=== PATIENT | male | born 1965 | race Caucasian/White ===

== ENCOUNTER → 2024-01-23 15:16 | Outpatient (REF) | payer OTHER, SELFPAY | LOC: RAD 15:16 | PROVIDERS: ATTENDING PHYSICIAN Internal Medicine Critical Care Medicine; FAMILY PHYSICIAN Internal Medicine; REFERRING PHYSICIAN Internal Medicine Cardiovascular Disease | DX: R91.1 Solitary pulmonary nodule (principal); J43.2 Centrilobular emphysema; R06.02 Shortness of breath; I50.22 Chronic systolic (congestive) heart failure | CPT/HCPCS: 71250; 93306 ==

== ENCOUNTER → 2024-06-30 10:42 | Outpatient (REF) | payer OTHER, SELFPAY | LOC: RAD 10:42 | PROVIDERS: ATTENDING PHYSICIAN Internal Medicine; REFERRING PHYSICIAN Internal Medicine Cardiovascular Disease | DX: M25.551 Pain in right hip (principal) | CPT/HCPCS: 73502 ==

== ENCOUNTER 2024-09-10 13:19 | Emergency (ER) | payer OTHER, SELFPAY ==
[2024-09-10 13:25] VITALS: BP 145/69
[2024-09-10 14:01] LABS: % Eosinophils 5.2 % (0-6); % Immature Granulocytes 0.1 % (0-0.5); % Lymphocytes 30.9 % (20.5-51.1); % Monocytes 7.8 % (1.7-9.3); Absolute Basophils 0.1 10^3/uL (0-0.2); Absolute Eosinophils 0.4 10^3/uL (0-0.7); Absolute Lymphocytes 2.3 10^3/uL (1.2-3.4); Absolute Monocytes 0.6 10^3/uL (0.1-0.6); Hematocrit 40.6 % (39.0-52.0); Hemoglobin 13.7 g/dL (13.0-18.0); Mean Corp Hgb Conc. 33.7 g/dL (33.0-37.0); Mean Corpuscular Hgb 29.5 pg (27.0-31.0); Mean Corpuscular Volume 87.3 fL (80.0-94.0); Mean Platelet Volume 9.7 fL (7.4-10.4); Nucleated Red Blood Cells % 0 % (-); Platelet Count 215 10^3/uL (130-400); Red Blood Cell Count 4.65 10^6/uL (4.70-6.10); Red Cell Dist. Width 14.6 % (11.5-14.5); White Blood Cell Count 7.3 10^3/uL (4.8-10.8)
[2024-09-10 14:16] LABS: COVID-19 Antigen Negative (Negative)
[2024-09-10 14:29] LABS: NT-proBNP 905 pg/ml; Troponin I < 0.012 ng/ml
[2024-09-10 14:38] LABS: ALT (SGPT) 30 U/L (0-50); AST (SGOT) 51 U/L (17-59); Albumin 4.7 g/dl (3.5-5.0); Alkaline Phosphatase 118 U/L (38-126); Blood Urea Nitrogen 26 mg/dl (9-20); Calcium 9.2 mg/dl (8.4-10.2); Carbon Dioxide 25 mmol/L (22-30); Chloride 98 mmol/L (98-107); Glucose 101 mg/dl (70-99); Potassium 3.8 mmol/L (3.5-5.1); Sodium 136 mmol/L (135-145); Total Bilirubin 1.5 mg/dl (0.2-1.3); eGFR > 60.00
--- NOTE | 2024-09-10 15:04 | ED.GENMED ---
History of Present Illness
<Eligio Flynn PA-C - Last Filed: 09/10/24 18:19>
General
Chief Complaint: Breathing Problem
Source: patient
Exam Limitations: none
Time Seen by Provider: 09/10/24 14:52
History of Present Illness
History of Present Illness:
59-year-old male with history of COPD CHF follows with cardiology here has history CHF with ejection fraction of 30% on last echocardiogram done in December of last year. Presents with persistent cough and occasional shortness of breath since 3 to 4
days ago. No associated chest pain. No recent travel. On a baby aspirin. He denies any weight gain or leg swelling. He noted more of a bronchospasm sensation last evening. He denies any hemoptysis. No vomiting. No fever. They spoke with
cardiology office today and he told him to come here for further evaluation. No other complaints at this time
Phy Exam
<Eligio Flynn PA-C - Last Filed: 09/10/24 18:19>
Physical Exam
Physical Exam:
General: Well appearing male coughing throughout exam
HEENT: NC/AT
heart: RRR, no mumurs
lungs: Coarse bilaterally with a cough.
Extremities: No cyanosis or edema
Skin: Warm no rash
Scores
<Eligio Flynn PA-C - Last Filed: 09/10/24 18:19>
Heart Failure Risk
Heart Failure Risk Score: Not Applicable
Course
<Eligio Flynn PA-C - Last Filed: 09/10/24 18:19>
Orders/Labs/Results
Orders:
Orders
09/10/24 13:26
ECG [Electrocardiogram (*1)] Urgent
Reason for Study: Shortness of Breath
EKG- Treatment ONCE
09/10/24 13:49
COVID-19 Antigen Urgent
Source: Nasal Swab
Complete Blood Count/With Diff Urgent
Comprehensive Metabolic Panel Urgent
NT-proBNP Urgent
Troponin I Urgent
Influenza A+B Rapid Molecular Urgent
DEEP Source: Nasal Swab
Specimen Description:
09/10/24 15:00
Ipratropium/Albuterol Sulfate [Duoneb] 3 ml INH R NOW ONE
CR Chest - 2 Views Urgent
Comment:
Reason For Exam: cough
09/10/24 18:04
Azithromycin [Zithromax] 500 mg PO NOW STA
Prednisone [Deltasone] 50 mg PO NOW STA
Abnormal Lab Results
09/10/24
13:49
RBC 4.65 L 10^6/uL
(4.70-6.10)
RDW 14.6 H %
(11.5-14.5)
BUN 26 H mg/dl
(9-20)
Glucose 101 H mg/dl
(70-99)
Total Bilirubin 1.5 H mg/dl
(0.2-1.3)
09/10/24 13:49
09/10/24 13:49
Vital Signs
Initial and Last Documented VS:
Initial Vital Signs
Temp Pulse Resp BP Pulse Ox
97.7 F 68 16 145/69 98
09/10/24 13:25 09/10/24 13:25 09/10/24 13:25 09/10/24 13:25 09/10/24 13:25
Last Documented Vital Signs
Temp Pulse Resp BP Pulse Ox
97.7 F 91 16 161/79 98
09/10/24 13:25 09/10/24 17:28 09/10/24 13:25 09/10/24 16:00 09/10/24 17:00
<Tahir Vela, DO - Last Filed: 09/10/24 18:01>
Orders/Labs/Results
Orders:
Orders
09/10/24 13:26
ECG [Electrocardiogram (*1)] Urgent
Reason for Study: Shortness of Breath
EKG- Treatment ONCE
09/10/24 13:49
COVID-19 Antigen Urgent
Source: Nasal Swab
Complete Blood Count/With Diff Urgent
Comprehensive Metabolic Panel Urgent
NT-proBNP Urgent
Troponin I Urgent
Influenza A+B Rapid Molecular Urgent
DEEP Source: Nasal Swab
Specimen Description:
09/10/24 15:00
Ipratropium/Albuterol Sulfate [Duoneb] 3 ml INH R NOW ONE
CR Chest - 2 Views Urgent
Comment:
Reason For Exam: cough
09/10/24 18:04
Azithromycin [Zithromax] 500 mg PO NOW STA
Prednisone [Deltasone] 50 mg PO NOW STA
Abnormal Lab Results
09/10/24
13:49
RBC 4.65 L 10^6/uL
(4.70-6.10)
RDW 14.6 H %
(11.5-14.5)
BUN 26 H mg/dl
(9-20)
Glucose 101 H mg/dl
(70-99)
Total Bilirubin 1.5 H mg/dl
(0.2-1.3)
09/10/24 13:49
09/10/24 13:49
Vital Signs
Initial and Last Documented VS:
Initial Vital Signs
Temp Pulse Resp BP Pulse Ox
97.7 F 68 16 145/69 98
09/10/24 13:25 09/10/24 13:25 09/10/24 13:25 09/10/24 13:25 09/10/24 13:25
Last Documented Vital Signs
Temp Pulse Resp BP Pulse Ox
97.7 F 91 16 161/79 98
09/10/24 13:25 09/10/24 17:28 09/10/24 13:25 09/10/24 16:00 09/10/24 17:00
<Eligio Flynn PA-C - Last Filed: 09/10/24 18:19>
MDM/Problems Addressed
Differential Diagnosis Includes:
Cough shortness of breath. Consider viral illness for COPD flare versus CHF flare versus pneumonia
Does not appear volume overloaded on exam and BNP is within normal limits. Chest x-ray is pending. COVID and flu test were negative.
<Eligio Flynn PA-C - Last Filed: 09/10/24 18:19>
*Critical Care Note
Total Time (30-74mins, 75-104mins- exclusive of procedures): Not Applicable
<Eligio Flynn PA-C - Last Filed: 09/10/24 18:19>
Update Note
Update Note:
Patient reevaluated still coughing but not hypoxic. He ambulated well without any hypoxia. Chest x-ray was read as negative. Suspect COPD flare. Discussed with emergency room attending as well as pulmonology. No indication for admission. Will
start prednisone Zithromax and Tessalon. 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
ED Attending Note
<Eligio Flynn PA-C - Last Filed: 09/10/24 18:19>
-
Portions of this chart may have been created with voice recognition software.� Occasional wrong word or��sound alike� substitutions may have occurred due to the inherent limitations of voice recognition software.
<Tahir Vela DO - Last Filed: 09/10/24 18:01>
ED Attending Note
Patient seen and examined by attending physician: Yes
I performed the substantive portion of visit, reviewed & personally made and approve the management plan that is documented in note by myself or SADIE.: Yes
ED Attending Note:
I evaluated the patient at bedside. Patient's main symptom is prominent recurring coughing to the point that this leads to shortness of breath. Suspect more of a COPD exacerbation/viral syndrome. Chest x-ray clear but will give a short course of
azithromycin as well as steroids. Less of a suspicion for heart failure.
Discharge Plan
Departure
Patient Disposition: Home (Routine Discharge)
Date of Disposition: 09/10/24
Time of Disposition: 18:16
Patient with high blood pressure during this ER visit?: No
Discharge Problem:
Acute exacerbation of chronic obstructive pulmonary disease
Instructions: Exacerbation of COPD (DC)
Prescriptions:
New
prednisone 20 mg tablet
40 mg PO DAILY 5 Days Qty: 10 0RF
azithromycin [Zithromax] 250 mg tablet
250 mg PO DAILY Qty: 4 0RF
benzonatate 200 mg capsule
200 mg PO TID PRN (Reason: Cough) Qty: 14 0RF
No Action
carvedilol [Coreg] 25 MG tablet
25 mg PO BID
atorvastatin 40 MG tablet
80 mg PO DAILY
isosorbide mononitrate 30 MG tablet extended release 24 hr
30 mg PO DAILY
hydralazine 25 MG tablet
50 mg PO DAILY
pantoprazole 40 MG tablet,delayed release (DR/EC)
40 mg PO DAILY
meloxicam 15 mg Tablet
15 mg PO DAILY
spironolactone 25 mg Tablet
25 mg PO DAILY
hydralazine 25 mg Tablet
25 mg PO QPM
aspirin [aspirin] 81 mg tablet,delayed release (DR/EC)
81 mg PO DAILY Qty: 1 0RF
furosemide 40 MG tablet
60 mg PO BID Qty: 0 0RF
Rx Instructions:
Please note dose increase
Referrals:
Bjorn Ray MD [Family Provider] -
Interventions
Interventions:
*Risk Screen - Suicide Last Done: 09/10/24 15:15
*General Assessment Last Done: 09/10/24 15:15
ED- Fall Risk Assessment Last Done: 09/10/24 17:29
ED- Cardiac Assessment Last Done: 09/10/24 17:29
ED- Pulmonary Assessment Last Done: 09/10/24 17:29
Discharge Date and Time
Print Language: ITALIAN
[2024-09-10] MEDS: DUONEB 3 ML INH (15:14)
[2024-09-10 15:15] VITALS: BMI 26.2
[2024-09-10 16:00] VITALS: BP 161/79
[2024-09-10] MEDS: DELTASONE 50 MG PO (18:11)
[2024-09-10] MEDS: ZITHROMAX 500 MG PO (18:11)
== END 2024-09-10 18:38 | disposition home or self-care (01) ==
LOC: EMR 13:19
PROVIDERS: Emergency Medicine; EMERGENCY PHYSICIAN Emergency Medicine; FAMILY PHYSICIAN Internal Medicine
DX: J44.1 Chronic obstructive pulmonary disease with (acute) exacerbation (principal); I50.9 Heart failure, unspecified
CPT/HCPCS: 99285; 94640; 71046; 80053; 83880; 84484; 85025; 87502; 87811; 93005

== ENCOUNTER → 2024-11-20 14:50 | Outpatient (REF) | payer OTHER, SELFPAY | LOC: RCS 14:50 | PROVIDERS: ATTENDING PHYSICIAN Internal Medicine Cardiovascular Disease; FAMILY PHYSICIAN Internal Medicine | DX: I50.20 Unspecified systolic (congestive) heart failure (principal) | CPT/HCPCS: 93306 ==

== ENCOUNTER → 2025-03-01 14:00 | Outpatient (REF) | payer OTHER, SELFPAY | LOC: HWRAD 14:00 | PROVIDERS: ATTENDING PHYSICIAN Internal Medicine Critical Care Medicine; FAMILY PHYSICIAN Internal Medicine; REFERRING PHYSICIAN Internal Medicine Cardiovascular Disease | DX: R91.1 Solitary pulmonary nodule (principal) | CPT/HCPCS: 71250 ==

== ENCOUNTER 2025-05-03 11:29 | Day surgery (SDC) | payer OTHER, SELFPAY ==
[2025-05-03] VITALS (7 sets, daily range): BP systolic 130–163; BP diastolic 63–89; BMI 26.8; BMI 28.4
[2025-05-03 12:02] LABS: Glucose - Point of Care 95 mg/dl (70-99)
--- NOTE | 2025-05-03 13:13 | W.ICD.CONTRA ---
Post ICD/SUPERINTENDENT DIVISION-D
-
History of VA?: No
LV Function
Left ventricular function study result?: Ejection Fraction >/= 40%
ACEI/ARB/ARNI
Patient already on ACEI/ARB/ARNI: No
ACEI/ARB/ARNI Not Indicated: Left Ventricular EF >/= 40%
Beta-Niru
Patient already on Beta Niru: Yes
--- NOTE | 2025-05-03 13:23 | ITS.CL.ICD ---
Frame Stripper And Crusher - ICD
Implantable Cardioverter Defibrillator
Procedure Report:
Dual Chamber Implantable Cardioverter� Defibrillator Generator Change:
Mr. Howard is a very pleasant 60 years old gentleman with chronic systolic heart failure and s/p ACTUARIAL CONSULTANT-D that has responded to ACTUARIAL CONSULTANT and EF has improved to 45% with end of battery life is here for generator change.
Indications: Severe systolic dysfunction
Date of the Procedure: 05/03/2025
Pre-Operative Diagnosis: Heart failure with reduced ejection fraction and end of battery life.
Post-Operative Diagnosis: Heart failure with reduced ejection fraction
Procedure Performed: BIVENTRICULAR IMPLANTABLE CARDIOVERRTER DEFIBRILLATOR GENERATOR CHANGE
Performing Physician:
Smooth Soares MD
Anesthesia:
See anesthesia records
Detailed Description of the Procedure:
The patient was identified using hospital identification and informed consent obtained for the procedure. The risks were explained including, but not limited to: Bleeding, infection, arrhythmia, stroke, vascular/cardiac/lung puncture, surgery,
pacemaker dependency/device malfunction. All questions were answered.
The patient was brought to the electrophysiology laboratory in stable condition in fasting state. Continuous electrocardiographic and hemodynamic monitoring was initiated.
The initial rhythm sinus with BiV pacing.
The procedure site was meticulously prepared with surgical scrub and allowed to dry with no pooling. Sterile draping was applied to cover the procedure site. The image intensifier was draped with sterile bag and positioned over the patient.
The left infraclavicular region was prepped and draped in the usual sterile fashion. Local anesthesia was administered subcutaneously using 1% lidocaine / bupivacaine. The incision was made on the previous scar. The old ICD generator was accessed
and the adhesions were removed with care to avoid damage to the leads. The ICD capsule was cut to access the generator. The old device was attached to the underlying fascia and adhesions were cut to free the device. It was removed from the body. The
Weitlaner retractor was placed in the incision and used as access to skin for unipolar pacing as needed.
The leads were gradually removed and placed in the respective locations in the newer generator without any significant pause noted.
The old pocket and capsule was modified and the excessive scar was removed. The new device was placed in the modified pocket.
A TYRX absorbable antibacterial envelope was used and was placed around the device and leads.
There was excellent sensing, pacing, and impedance from the leads.�Bovie cautery, and antibiotics were used.
The wound was irrigated thoroughly with antibiotic solution and closed in 3 layers using 2-0, V loc sutures and 4-0 Monocryl sutures. Steri-Strips and a bandage were applied externally.�
Procedure End:
The procedure was tolerated well. A bandage was applied to the incision area.
Estimated Blood loss:
5 cc
Fluoro time:
0 min
Specimens Removed:
No cultures and no specimens were obtained. No intraoperative pathology was identified.
Urine output:
None
Packs / Drains/ Tubes:
None
Instrument / Sponge Count Correct:
Yes
Complications of the Procedure:
None
Condition of Patient at Time of Transfer:
Hemodynamically stable with no neurological or vascular compromise.
Device information:�
Generator: Rewardpod; Model# [id number]; Serial# [id number]. (implanted: 05/03/2025)
Atrial Lead: [employer]att; Model# [id number]; Serial# [id number]. (implanted: 05/07/2010)
Measured data in the right atrium was sensing of 3.0 mV, impedance of 380 ohms and threshold of 0.5 V at 0.4ms�
RV Lead: Gurvinder Sci; Model# [id number]; Serial# [id number]. (implanted: 05/07/2010)
Measured data in the RV lead was sensing of 10.9 mV, impedance of 746ohms and threshold of 0.5 V at 0.4ms�
LV Lead: SJM; Model# [id number]; Serial# [id number]. (implanted: 05/07/2010)
Measured data in the LV lead was impedance of 399ohms and threshold of 0.5 V at 0.4ms�
PROGRAMMING PARAMETERS:�
Ambrocio parameter settings were DDD 50-130 bpm. �
����������� Mode switch: On
�����������
����������� Rate Adaptive A-V Interval: On
Output� parameters:
����������������������� Amplitude (V)������������� Pulse Width (ms)������� Sensitivity (mV)
����������� RA: ����� 1.0 ����������������������������� 0.4������������������������������ 0.3
����������� RV:������ 1.0������������������������������ 0.4������������������������������ 0.3
����������� LV:������ 1.0������������������������������ 0.4������ (LV tip-->RV coil)��������������������
Tachy parameter settings:
����������� SVT discrimination: On
AF/AFl: On
SVT limit: 260 msec
AV interval: Adaptive
�����������
VT zone:
����������������������� VT: 150 - 188 bpm --> Monitor
����������������������� VT/VF: >188 bpm --> Shock� x6
�����������
Summary:
Successful generator change of Medtronic Biventricular ICD pacemaker with atrial lead. (MRI non-compatible due to mismatched leads)
Results/Recommendations:
1. Please provide patient with adequate pain control�
Instructions to be given to patient:�
- Please follow up with [facility] to get your wound checked within 7 days of your discharge.
- Do not wet incision site until after it is evaluated at cardiology clinic. No showers until then. Sponge baths are OK.�
- Allow 'steri strips' to fall off on their own�
- If you notice any fevers, shortness of breath, lightheadedness, chest pain, or worsening swelling in the wound site, please contact the arrhythmia clinic, contact your carpenter prototype, or present to the hospital for evaluation.�
Smooth Soares MD
Electrophysiology
== END 2025-05-03 14:20 | disposition home or self-care (01) ==
LOC: CATH 11:29
PROVIDERS: ATTENDING PHYSICIAN Internal Medicine Cardiovascular Disease; FAMILY PHYSICIAN Internal Medicine; OTHER PHYSICIAN Internal Medicine Cardiovascular Disease
DX: Z45.02 Encounter for adjustment and management of automatic implantable cardiac defibrillator (principal); I42.9 Cardiomyopathy, unspecified; I11.0 Hypertensive heart disease with heart failure; I50.22 Chronic systolic (congestive) heart failure; E78.2 Mixed hyperlipidemia; I25.10 Atherosclerotic heart disease of native coronary artery without angina pectoris; I34.0 Nonrheumatic mitral (valve) insufficiency; Z79.82 Long term (current) use of aspirin; Z79.899 Other long term (current) drug therapy
CPT/HCPCS: 33264; 82962; C1882